=== PATIENT | female | born 1960 | race Caucasian/White ===

== ENCOUNTER 2017-09-26 11:58 | Emergency (ER) | payer OTHER ==
[~2017-09-26] VITALS: Ht 157.5 cm; Wt 77.1 kg
--- NOTE | ~2017-09-26 | EKG ---
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 09/26/17 1740 1217 1217 Rajeev Houston MD, FACC /EPI
[~2017-09-26 11:58] MED LIST: ACETAMINOPHEN325 M1 PO; ADULT LOW DOSE81 MG PO; LOVASTAT20 PO; NAPROSYN500 MG PO; NORCO 5-325 TA1 EACH PO; PRINIVIL10 MG PO; TYLENOL P.M. E1 EAC3 PO; VERAPAMIL ER120 MG PO; ZOLOFT100 MG PO
[2017-09-26 12:57] LABS: ANION GAP 8 mmol/L (7-16); BUN 18 mg/dL (7-18); CALCIUM 9.4 mg/dL (8.5-10.1); CHLORIDE 104 mmol/L (98-107); CO2 26 mmol/L (21-32); CREATININE 1.1 mg/dL (0.6-1.0); GLUCOSE 101 mg/dL (74-106); SODIUM 138 mmol/L (136-145)
[2017-09-26 13:06] LABS: ALBUMIN 3.9 g/dL (3.4-5.0); SGOT 22 U/L (15-37); SGPT 30 U/L (30-65); TOTAL BILIRUBIN 0.4 mg/dL (<0.1-1.0); TOTAL PROTEIN 7.4 g/dL (6.4-8.2); TROPONIN-I < 0.04 ng/mL (<0.06)
[2017-09-26 13:16] LABS: BASOPHILS 0.9 % (0.0-2.0); EOSINOPHILS 1.8 % (0.0-3.0); HEMATOCRIT 41.5 % (37.0-47.0); HEMOGLOBIN 14.1 gm/dL (12.0-15.0); LYMPHOCYTES 35.3 % (24.0-44.0); MCH 30.4 pg (26.0-34.0); MCHC 34.1 g/dL (28.0-37.0); MCV 89.1 fL (80.0-100.0); MONOCYTES 5.5 % (1.0-8.0); PLATELET COUNT 264 thou/uL (150-400); POLYS 56.5 % (36.0-66.0); RBC 4.66 mil/uL (4.20-5.00); RDW 14.1 % (10.5-14.5); WBC 8.9 thou/uL (4.0-11.0)
[2017-09-26 13:52] LABS: PROTIME 9.7 Seconds (9.3-11.4)
[2017-09-26 16:01] VITALS: BP 113/77
[2017-09-26] MEDS ORDERED: ZESTRIL40 MG PO (16:22)
[2017-09-26] MEDS ORDERED: PREDNISONE 20 M20 M1 PO (16:22)
[2017-09-26] MEDS ORDERED: VENTOLIN HFA 1818 GM INH (16:23)
== END 2017-09-26 16:48 | disposition home or self-care (01) ==
LOC: ER 11:58
PROVIDERS: Physician Assistant
DX: J20.8 Acute bronchitis due to other specified organisms (principal); I16.0 Hypertensive urgency; R20.2 Paresthesia of skin; F17.200 Nicotine dependence, unspecified, uncomplicated; F41.9 Anxiety disorder, unspecified; I10 Essential (primary) hypertension; F32.9 Major depressive disorder, single episode, unspecified; Z90.89 Acquired absence of other organs; Z71.6 Tobacco abuse counseling; Z98.890 Other specified postprocedural states; Z88.5 Allergy status to narcotic agent; Z88.2 Allergy status to sulfonamides

== ENCOUNTER → 2017-10-15 | Outpatient (CLI) | payer OTHER ==
[~2017-10-15] MED LIST changes: +PREDNISONE 20 M20 M1 PO; +VENTOLIN HFA 1818 GM INH; +ZESTRIL40 MG PO
== END ==
LOC: CAT 06:56
DX: Z13.6 Encounter for screening for cardiovascular disorders (principal)

== ENCOUNTER → 2018-05-06 | Outpatient (CLI) | payer OTHER | LOC: RAD 03:49 | DX: Z12.31 Encounter for screening mammogram for malignant neoplasm of breast (principal) ==

== ENCOUNTER → 2018-05-09 | Outpatient (CLI) | payer OTHER | LOC: RAD 04:48 | DX: N63.11 Unspecified lump in the right breast, upper outer quadrant (principal) ==

== ENCOUNTER 2019-04-30 11:08 | Observation (INO) | payer OTHER ==
[~2019-04-30] VITALS: Ht 157.5 cm; Wt 80.3 kg
--- NOTE | ~2019-04-30 | EMS ---
[facility] [address] [place] [address] EMS Patient Care Report Name: CHAKA GILLILAND Room #: REG UMM Jha#: [id number] Admission: 04/30/19 Attend Phys: Discharge: Date of : 62 Report #: [id number] THIS REPORT FOR: //name// Report Transmitted: 04/30/2019 11:19 EMS Care Summary [facility] MED-ACT Incident [id number] @ 04/30/2019 10:35 Incident Location [address] [place] [address] Patient CHAKA GILLILAND Female, 58 Years 1960 Patient Address [address] [place] [address] Patient History Hypertension,Smoking, Patient Allergies No known allergies, Patient Medications Wellbutrin, Simvastatin, Lisinopril, Chief Complaint "My chest hurts." Disposition Transported No Lights/[place] Dispatch Reason Chest Pain (Non-Traumatic) Transported To [facility] Narrative "My chest hurts." Dispatched to this location emergent for a female PT with complaints of chest [address] [address] EMS Patient Care Report Name: CHAKA GILLILAND Room #: REG Abhijeet#: [id number] Admission: 04/30/19 Attend Phys: Discharge: Date of : 62 Report #: [id number] pain. Arrive on scene to find the PT sitting in a chair with coworkers at side. PT reports she was driving to work from her house around "10:25 AM" when she developed chest pain. PT reports the pain is located in the middle of her chest and radiates to her back. She also reports some pain underneath her armpits. PT reports the pain feels like "someone is punching me in the chest." PT denies any nausea. PT reports prior to this beginning she experienced an extremely stressful situation at her residence. PT reports she is a smoker. She also reports a history of HTN, but denies any recent changes to her medications. PT reports she has been taking her medication as prescribed. PT denies any recent coughs or fevers. PT denies any history of GERD. PT requests oxygen via nasal cannula for "comfort." She reports minor complaints of SOA. PT denies any trauma to her chest. Initial Vitals @10:47P: 112,R: 18,BP: 199/118,SpO2: 98,NC Suspected: false @10:45P: 113,R: 18,BP: 221/114,Pain: 6/10,GCS: 15,Glucose: 146,SpO2: 98,Revised Trauma: 12,NC Suspected: false @10:45P: 118,R: 18,BP: 221/114,GCS: 15,SpO2: 98,Revised Trauma: 12,NC Suspected: false @11:02P: 113,R: 18,BP: 133/92,Pain: 5/10,GCS: 15,SpO2: 100,Revised Trauma: 12, Assessments @10:57MENTAL:Person Oriented,Time Oriented,Place Oriented,Event Oriented,SKIN:HEENT:Head/Face: No Abnormalities,Neck/Airway: No Abnormalities,LUNG SOUNDS:General: No Abnormalities,ABDOMEN:General: No Abnormalities,PELVIS//GI:EXTREMITIES:Left Arm: No Abnormalities,Right Arm: No Abnormalities,Left Leg: No Abnormalities,Right Leg: No Abnormalities,PULSE:NEURO: Impression Chest Pain, Other (Non-Cardiac) Procedures @10:4712-Lead ECGResponse: ImprovedSucceeded@10:47Nitroglycerin - 0.4 Milligrams (mg) - SublingualResponse: Improved@10:45Aspirin - 324 Milligrams (mg) - OralResponse: Improved@11:02Nitroglycerin - 0.4 Milligrams (mg) - SublingualResponse: Improved Timeline 10:34,Call Received 10:34,Psap Call 10:35,Dispatched 10:35,En Route 10:39,On Scene 10:42,At Patient 10:45,Aspirin - 324 Milligrams (mg) - Oral,Response: Improved [address] [address] EMS Patient Care Report Name: GILLILANDCHAKA Room #: REG UMM Jha#: [id number] Admission: 04/30/19 Attend Phys: Discharge: Date of : 62 Report #: [id number] 10:45,BP: 221/114 M,PULSE: 113,RR: 18 R,SPO2: 98 Ox,ETCO2: ,B,PAIN: 6,GCS: 15, 10:45,BP: 221/114 M,PULSE: 118,RR: 18 R,SPO2: 98 Ox,ETCO2: ,BG: ,PAIN: ,GCS: 15, 10:47,12-Lead ECG,Response: ImprovedSucceeded, 10:47,BP: 199/118 M,PULSE: 112,RR: 18 R,SPO2: 98 Ox,ETCO2: ,BG: ,PAIN: ,GCS: , 10:47,Nitroglycerin - 0.4 Milligrams (mg) - Sublingual,Response: Improved 10:57,Depart Scene 11:02,Nitroglycerin - 0.4 Milligrams (mg) - Sublingual,Response: Improved 11:02,BP: 133/92 M,PULSE: 113,RR: 18 R,SPO2: 100 Ox,ETCO2: ,BG: ,PAIN: 5,GCS: 15, 11:04,At Destination 11:27,Call Closed Disclaimer v1.1 Copyright 2019 [email or web address] This EMS Care Summary contains data elements from the applicable legal record (which may be displayed differently). It is designed to provide pertinent information for the following purposes: continuity of care, clinical quality, and state data reporting. The complete legal record is available to ED staff and administrators of the receiving hospital in [employer]'s Patient Tracker. All data is provided "as is."
[2019-04-30 11:12] VITALS: BP 145/112
[2019-04-30 11:41] LABS: ANION GAP 12 mmol/L (7-16); BUN 13 mg/dL (7-18); CALCIUM 9.2 mg/dL (8.5-10.1); CHLORIDE 101 mmol/L (98-107); CO2 22 mmol/L (21-32); GLUCOSE 136 mg/dL (74-106); POTASSIUM 3.7 mmol/L (3.5-5.1); SODIUM 135 mmol/L (136-145)
[2019-04-30 11:48] LABS: ABSOLUTE NEUTROPHILS 5.5 thou/uL (1.4-8.2); BASOPHILS 0.7 % (0.0-2.0); EOSINOPHILS 1.7 % (0.0-3.0); HEMATOCRIT 39.8 % (37.0-47.0); HEMOGLOBIN 13.6 gm/dL (12.0-15.0); LYMPHOCYTES 26.2 % (24.0-44.0); MCHC 34.2 g/dL (28.0-37.0); MCV 90.7 fL (80.0-100.0); MONOCYTES 6.4 % (1.0-8.0); PLATELET COUNT 270 thou/uL (150-400); RBC 4.39 mil/uL (4.20-5.00); RDW 13.6 % (10.5-14.5); WBC 8.5 thou/uL (4.0-11.0)
[2019-04-30 11:51] LABS: ALBUMIN 3.9 g/dL (3.4-5.0); SGOT 23 U/L (15-37); SGPT 22 U/L (30-65); TOTAL BILIRUBIN 0.6 mg/dL (<0.1-1.0); TOTAL PROTEIN 7.6 g/dL (6.4-8.2); TROPONIN-I <0.06 ng/mL (<0.06)
[2019-04-30 16:02] LABS: AMP/METHAMP Negative (Negative); BARBITURATES Negative (Negative); BENZODIAZEPINES Negative (Negative); COCAINE Negative (Negative); METHADONE Negative (Negative); OPIATES POSITIVE (Negative); PCP Negative (Negative)
--- NOTE | 2019-04-30 16:16 | 2DMMODE ---
[facility] [place] [address] 2 D/M-MODE ECHOCARDIOGRAM Name: CHAKA GILLILAND Room #: 170-8 ADM IN M.R.#: [id number] Admission: 04/30/19 Attend Phys: Mitch Jane, Discharge: Date of : 62 Report #: [id number] THIS REPORT FOR: //name// APPROVED REPORT Study performed: 04/30/2019 14:30:24 EXAM: Comprehensive 2D, Doppler, and color-flow Echocardiogram Patient Location: ER Room #: 8 Status: routine BSA: 1.82 HR: 73 bpm BP: 195/99 mmHg Rhythm: NSR Other Information Study Quality: Adequate Indications Hypotension Chest Pain Hx: HTN, DM 2D Dimensions RVDd: 29.45 mm IVSd: 12.48 (7-11mm) LVOT Diam: 18.78 (18-24mm) LVDd: 41.08 mm PWd: 9.78 (7-11mm) Ascending Ao: 30.12 (22-36mm) LVDs: 30.97 (25-40mm) Aortic Root: 31.19 mm IVC: 12.00 mm Volumes Left Atrial Volume (Systole) Single Plane 4CH: 29.32 mL Single Plane 2CH: 27.93 mL LA ESV Index: 17.00 mL/m2 Aortic Valve AoV Peak Tolu.: 1.65 m/s AO Peak Gr.: 10.86 mmHg LVOT Max P.07 mmHg LVOT Max V: 1.13 m/s KELLY Vmax: 1.89 cm2 Mitral Valve E/A Ratio: 0.9 [facility] [address] [address] 2 D/M-MODE ECHOCARDIOGRAM Name: CHAKA GILLILAND Room #: 170-8 ADM IN [facility].#: [id number] Admission: 04/30/19 Attend Phys: Mitch Jane, Discharge: Date of : 62 Report #: [id number] MV Decel. Time: 195.61 ms MV E Max Tolu.: 0.68 m/s MV A Tolu.: 0.77 m/s MV PHT: 56.73 ms IVRT: 96.89 ms Pulmonary Valve PV Peak Tolu.: 1.14 m/s PV Peak Gr.: 5.20 mmHg Pulmonary Vein P Vein S: 0.50 m/s P Vein A: 0.27 m/s P Vein D: 0.33 m/s P Vein A Dur.: 138.4 msec P Vein S/D Ratio: 1.52 Tricuspid Valve RAP Estimate: 5.00 mmHg Left Ventricle The left ventricle is normal size. There is normal LV segmental wall motion. There is normal left ventricular wall thickness. The left ventricular systolic function is normal. The left ventricular ejection fraction is within the normal range. LVEF is 55-60%. Mild diastolic dysfunction is present (impaired relaxation pattern). Right Ventricle The right ventricle is normal size. The right ventricular systolic function is normal. Atria The left atrium size is normal. The right atrium size is normal. Aortic Valve The aortic valve is normal in structure. No aortic regurgitation is present. There is no aortic valvular stenosis. Mitral Valve The mitral valve is normal in structure. Trace to mild mitral regurgitation. No evidence of mitral valve stenosis. Tricuspid Valve The tricuspid valve is normal in structure. Trace tricuspid regurgitation. Pulmonic Valve [facility] [address] [place] [address] 2 D/M-MODE ECHOCARDIOGRAM Name: CHAKA GILLILAND Room #: 170-8 ADM IN M.R.#: [id number] Admission: 04/30/19 Attend Phys: Mitch Jane, Discharge: Date of : 62 Report #: [id number] Pulmonic valve is not well visualized. Trace pulmonic regurgitation. Great Vessels The aortic root is normal in size. IVC is normal in size and collapses >50% with inspiration. Pericardium There is no pericardial effusion. <Conclusion> The left ventricular systolic function is normal. There is normal LV segmental wall motion. LVEF is 55-60%. Mild diastolic dysfunction The aortic valve is normal in structure. No aortic regurgitation or stenosis The mitral valve is normal in structure. Trace to mild mitral regurgitation. Pulmonary artery systolic pressure could not be reliably ascertained There is no pericardial effusion. <ELECTRONICALLY SIGNED> By: Rajeev Houston MD, FACC 04/30/191615 15 15 Rajeev Houston MD, FACC /INF
[2019-04-30 18:29] VITALS: BP 170/100
[2019-04-30 20:36] VITALS: BP 145/83
[2019-04-30 20:56] VITALS: BP 149/93
[2019-04-30] MEDS ORDERED: SIMVASTATIN80 MG PO (21:18)
[2019-04-30 23:40] VITALS: BP 138/56
[2019-05-01 03:42] VITALS: BP 156/83
--- NOTE | 2019-05-01 04:15 | NUR ---
ASSUMED CARE OF PATIENT FROM ER. ADMISSION AND MED RECONCILIATION COMPLETE. DENIES ANY CHEST PAIN. SLEEPING THROUGH THE NIGHT. NPO AFTER MIDNIGHT FOR STRESS TEST AND ECHO IN AM. POC GOALS ESTABLISHED.
[2019-05-01 07:29] VITALS: BP 155/94
--- NOTE | 2019-05-01 08:36 | EKG ---
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
[2019-05-01 11:52] VITALS: BP 151/86
[2019-05-01] MEDS ORDERED: ADULT LOW DOSE81 MG PO (13:11)
[2019-05-01 13:35] VITALS: BP 151/86
[2019-05-01 13:50] VITALS: BP 151/86
--- NOTE | 2019-05-01 13:51 | NUR ---
Assumed care approx. 0700 this AM. Plans for stress test. Pt drank decaf coffee this AM so non physical part done, and 2nd half of stress test will be completed outpatient next Saturday at 0800. Patient aware and plans/instructions discussed by MALLORY Mcfarland (cardiology), and nuclear med. Patient insisted on discharge orders today. Dr. Jane called, and dc orders obtained. IV taken out, tele removed and discharge packet/instructions given to patient. Drug info sheet on OTC aspirin given to patient along with script of Dr. Jane's orders for the aspirin. Patient left unit ambulatory with at 1350. Patient refused wheelchair and said she will walk. MALLORY Mcfarland called 5 minutes after patient left stating she didn't have the patient's follow up appointment placed in the discharge yet. Time/date of appointment and instructions on how to get to the office will be called by this RN to the patient.
--- NOTE | 2019-05-02 11:01 | EKG ---
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 : 1960 Requested By: Carmelita Kern Order Number: [id number] MD: Rajeev Houston Measurements Intervals [place] Rate: 80 P: 47 [place]: 163 QRS: 31 QRSD: 90 T: 3 QT: 386 QTc: 446 Interpretive Statements Sinus rhythm Normal tracing Compared to ECG 04/30/2019 11:12:06 No significant changes Electronically Signed On 05-02-2019 11:01:39 CDT by Rajeev Houston [email or web address] <ELECTRONICALLY SIGNED> By: Rajeev Houston MD, [facility] 05/02/19 1101 1024 1024 Rajeev Houston MD, [facility] /EPI
== END 2019-05-01 14:33 | disposition home or self-care (01) ==
LOC: ER 11:08 → 3W 13:12 → EROBS 13:12 → 3W 20:46
PROVIDERS: Emergency Medicine; ADMIT Family Medicine
DX: R07.89 Other chest pain (principal); I16.0 Hypertensive urgency; F41.9 Anxiety disorder, unspecified; J44.9 Chronic obstructive pulmonary disease, unspecified; E78.5 Hyperlipidemia, unspecified; F31.9 Bipolar disorder, unspecified; M46.92 Unspecified inflammatory spondylopathy, cervical region; I10 Essential (primary) hypertension; F17.210 Nicotine dependence, cigarettes, uncomplicated; Z79.899 Other long term (current) drug therapy; Z23 Encounter for immunization

== ENCOUNTER 2019-07-02 10:01 | Outpatient (CLI) | payer OTHER ==
[~2019-07-02] VITALS: Ht 157.5 cm; Wt 78.9 kg
[~2019-07-02 10:01] MED LIST changes: +SIMVASTATIN80 MG PO
--- NOTE | 2019-07-02 11:42 | EXE ---
[facility] Antonia Santos [employer] [place] [address] STRESS ECHOCARDIOGRAM Name: DARSHANACHAKA ARIZMENDI Room #: REG CL Abhijeet#: [id number] Admission: 07/02/19 Attend Phys: Kin Schaffer Discharge: Date of : 62 Report #: [id number] THIS REPORT FOR: //name// APPROVED REPORT Study performed: 07/02/2019 10:15:23 Exam: Stress Echocardiogram Indication: Chest pain Patient Location: Out-Patient Stress Nurse: Nehal Wagner RN Room #: Echo lab 2 Status: routine Ht: 5 ft 2 in HR: 65 bpm BP: 148/92 mmHg Rhythm: NSR Medical History Medical History: HTN, Hyperlipidemia Cardiac Risk Factors: HTN, Hyperlipidemia, FHX of CAD Pretest Chest Pain Characteristics: Non-exertional Chest pain Exercise History: Sedentary Procedure The patient underwent an Exercise Stress Test using the Troy Protocol. Blood pressure, heart rate, and EKG were monitored. An Echocardiogram was performed by prosthetic technician in four stages in quad fashion. At peak stress, four selected images were obtained and placed side by side with resting images for comparison. Stress Test Details Stress Test: Exercise stress testing was performed using a Troy protocol. HR Resting HR: 65 bpm Max Heart Rate (APMHR): 163 bpm Max HR Achieved: 160 bpm Target HR (85% APMHR): 138 bpm % of APMHR: 98 Recovery HR: 85 bpm HR response to stress: Normal HR response to stress BP Resting BP: 148/92 mmHg Max BP: 184/[address] [facility] [address] [place] [address] STRESS ECHOCARDIOGRAM Name: CHAKA GILLILAND Room #: REG CL [facility].#: [id number] Admission: 07/02/19 Attend Phys: Kin Schaffer Discharge: Date of : 62 Report #: [id number] Recovery BP: 152/90 mmHg BP response to stress: Normal blood pressure response to stress. ECG Clinical Reason for Termination: Maximal effort Stress Symptoms: Chest pain, Dyspnea Exercise duration: 8 min sec Highest Stage Achieved: Stage 3: 3.4 mph at 14% grade. Exercise capacity: 10.1 METs Overall Exercise Capacity for Age: Average Pre-Stress Echo The resting Echocardiogram showed normal left ventricular contractility with an estimated Ejection Fraction of about >55%. The resting echocardiogram demonstrated normal wall motion in all wall segments. Post-Stress Echo The stress Echocardiogram showed abnormal left ventricular contractility with an estimated Ejection Fraction of about 50-55%. The stress Echocardiogram demonstrated wall motion abnormality in the lateral, inferior crisostomo. Conclusion Clinical Response: Ischemic Exercise Capacity: Below Average Stress ECG Response: Equivocal Stress Echo Images: Ischemic Other Information Study Quality: Fair <ELECTRONICALLY SIGNED> By: Daniele Rome MD, FACC 07/02/19 114 114 40 Daniele Rome MD, FACC /INF
[2019-07-02 12:15] LABS: ABSOLUTE NEUTROPHILS 4.3 thou/uL (1.4-8.2); BASOPHILS 0.7 % (0.0-2.0); HEMATOCRIT 39.9 % (37.0-47.0); HEMOGLOBIN 13.4 gm/dL (12.0-15.0); LYMPHOCYTES 34.4 % (24.0-44.0); MCH 30.3 pg (26.0-34.0); MCHC 33.5 g/dL (28.0-37.0); MCV 90.6 fL (80.0-100.0); MONOCYTES 4.7 % (1.0-8.0); PLATELET COUNT 279 thou/uL (150-400); POLYS 58.2 % (36.0-66.0); RBC 4.41 mil/uL (4.20-5.00); RDW 13.7 % (10.5-14.5); WBC 7.5 thou/uL (4.0-11.0)
[2019-07-02 12:29] LABS: CALCIUM 9.2 mg/dL (8.5-10.1); CREATININE 1.1 mg/dL (0.6-1.0); POTASSIUM 3.9 mmol/L (3.5-5.1)
[2019-07-02 12:34] VITALS: BP 163/71
[2019-07-02] MEDS ORDERED: WELLBUTRIN XL150 MG PO (13:02)
[2019-07-02] MEDS ORDERED: HYDROXYZIN10 MG/5 ML PO (13:03)
[2019-07-02] MEDS ORDERED: IBUPROFEN 800800 M1 PO (13:04)
--- NOTE | 2019-07-02 19:34 | CATHLAB ---
[facility] [address] [place] [address] INVASIVE PROCEDURE REPORT Name: CHAKA GILLILAND Room #: 160-1 ADM IN ..#: [id number] Admission: 07/02/19 Attend Phys: Kin Schaffer Discharge: Date of : 62 Report #: [id number] THIS REPORT FOR: //name// APPROVED REPORT Study performed: 07/02/2019 12:03:34 Patient Details Patient Status: Out-Patient Room #: The patient is a 58 year-old female Event Personnel Daniele Rome Flight Software Test Engineer, Collin Recio RTR Scrub, Filiberto Robbins RN, Karol Rudolph Monitor, Luis Carlos Mitchell RTR Monitor, Candy Wilson RTR, CONTROL SYSTEMS DESIGNER Scrub Procedures Performed Art Access - R femoral artery* 74602 Initial Mod Sed Same Phys/QHP Gr5y 264679 45206 Mod Sed Same Phys/QHP Ea 729560 Left Heart Cath w/or w/o Coronaries [id number] [facility] Aortogram Abdominal Peripheral Angio 937125 Renal Bilateral Peripheral Angiography 1980184 CVRENALBIL Hemostasis w/ Mynx Indication Positive stress test, Chest pain Procedure Narrative The patient was brought electively to the Cardiac Catheterization Laboratory and was prepped and draped in a sterile manner. The Right Groin^ was infiltrated with 1% Lidocaine subcutaneous anesthesia. A PINNACLE 6FR Sheath #[id number] sheath was inserted into the RFA^. Coronary angiography was performed using coronary diagnostic catheters. The right coronary system was accessed and visualized with a JR 4 catheter. The left coronary system was accessed and visualized with a JL 4 catheter. The left ventricle was accessed and visualized with a Pigtail catheter. Left ventriculogram was performed in EASON projection. An aortogram of the abdominal aorta was performed. Closure device was deployed with a 6 Fr Mynx. The patient tolerated the procedure well and there were no complications associated with the procedure. There was no hematoma. Intraoperative Conscious Sedation Sedation start time: 15:01 Case end Time: 15:41 Fentanyl 100 mcg Versed [address] [address] INVASIVE PROCEDURE REPORT Name: CHAKA GILLILAND Room #: 160-1 [facility] IN [facility].#: [id number] Admission: 07/02/19 Attend Phys: Kin Schaffer Discharge: Date of : 62 Report #: [id number] Fluoro Time: 2.41 minutes Dose: DAP 3087.00 cGycm2 342 mGy Contrast Type and Amount: Visipaque 125 ml Hemodynamics The aortic pressure is 165/80 mmHg with a mean of 115 mmHg. The left ventricular pressure is 178/8 mmHg with a mean of mmHg. The left ventricular end diastolic pressure is 19 mmHg. Conclusion #1 normal left ventricular size and systolic function EF 55% #2 abdominal aorta is mildly ectatic with a small distal aneurysm brisk flow in the bilateral iliac system. #3 selective renal injection there is a 40-50% proximal left renal stenosis a right renal artery with mild disease. Will follow with Doppler ultrasound. #4 left main widely patent giving rise to LAD and circumflex #5 LAD is moderate proximal calcification and eccentric lesions proximally 40-50% this then wraps the apex with mild disease #6 circumflex OM nondominant but moderate size OM branch widely patent #7 dominant right coronary artery mild disease mild proximal calcification eccentric lesion 3040% proximal and mid vessel giving rise to relatively small PDA but patent. Recommendations and plan: Continue aggressive risk factor modification. We'll follow-up renal and abdominal aortic ultrasounds follow-up visit 6 months. Smoking cessation strongly recommended. Mild three-vessel coronary disease treat aggressively. <ELECTRONICALLY SIGNED> By: Daniele Roem MD, FACC 07/02/191933 33 33 Daniele Rome MD, FACC /INF
--- NOTE | 2019-07-07 09:41 | EKG ---
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
== END 2019-07-02 14:23 | disposition home or self-care (01) ==
LOC: CV 10:01 → TBACV 14:23 → CV 15:15
PROVIDERS: Internal Medicine Cardiovascular Disease
DX: R07.9 Chest pain, unspecified (principal); I10 Essential (primary) hypertension; F41.9 Anxiety disorder, unspecified; F31.9 Bipolar disorder, unspecified; E78.00 Pure hypercholesterolemia, unspecified; J44.9 Chronic obstructive pulmonary disease, unspecified; F17.210 Nicotine dependence, cigarettes, uncomplicated; Z98.890 Other specified postprocedural states; Z79.899 Other long term (current) drug therapy